=== PATIENT | male | born 1965 | race Caucasian/White ===

== ENCOUNTER 2016-11-03 01:33 | Emergency (ER) | payer SELFPAY ==
--- NOTE | 2016-11-03 02:23 | RADIOLOGY REPORT (SQ) ---
EXAM DESCRIPTION: FOOT RIGHT COMPLETE COMPLETED DATE/TIME: 11/03/2016 1:53 am REASON FOR STUDY: foot pain and swelling COMPARISON: None. NUMBER OF VIEWS: Three views. TECHNIQUE: AP, lateral and oblique radiographic images acquired of the right foot. LIMITATIONS: None. FINDINGS: MINERALIZATION: Normal. BONES: No acute fracture or dislocation. Mild degenerative changes at the 1st metatarsal-phalangeal joint. SOFT TISSUES: Mild soft tissue swelling overlying the 1st metatarsophalangeal joint. No radiopaque f oreign body. IMPRESSION: No radiographic evidence of acute fracture. Mild degenerative changes with overlying so ft tissue swelling at the 1st MTP joint. TECHNICAL DOCUMENTATION: JOB ID: [id number] [employer]- All Rights Reserved
[2016-11-03] MEDS ORDERED: COLCHICINE 0.6 MG TABLET PO ONE (04:41)
[2016-11-03] MEDS ORDERED: PREDNISONE 20 MG TABLET PO ONE (04:41)
[2016-11-03] MEDS ORDERED: HYDROCODONE/ACETAMINOPHEN 5-325 MG 6 TAB/DSPK PO PRN (04:41)
--- NOTE | 2016-11-03 04:42 | ER Document Report ---
ED Extremity Problem, Lower - General Mode of Arrival: Ambulatory Information source: Patient <SANDYTYLER - Last Filed: 11/03/16 05:56> <SUSANA CASTANO - Last Filed: 11/03/16 06:38> - General Chief Complaint: Foot Pain Stated Complaint: PAIN IN FOOT Time Seen by Provider: 11/03/16 04:10 Notes: Patient is a 51-year-old male that presents to the emergency department today with complaints of right foot pain and swelling. Patient states that he noticed this pain when he woke up this morning. Patient states the pain is mainly located in his right great toe which has increased in severity throughout the day. Patient denies any fevers. Patient denies a history of gout. (TYLER DELGADO) - Related Data Allergies/Adverse Reactions: shellfish derived Allergy (Verified 11/03/16 01:38) Past Medical History - General Information source: Patient - Social History Smoking Status: Unknown if Ever Smoked Chew tobacco use (# tins/day): No Frequency of alcohol use: Social Drug Abuse: None Lives with: Family Family History: Reviewed & Not Pertinent - Medical History Medical History: Negative Surgical Hx: Negative <TYLER DELGADO - Last Filed: 11/03/16 05:56> - Social History Smoking Status: Former Smoker <SUSANA CASTANO - Last Filed: 11/03/16 06:38> Review of Systems - Review of Systems Constitutional: No symptoms reported EENT: No symptoms reported Cardiovascular: No symptoms reported Respiratory: No symptoms reported Gastrointestinal: No symptoms reported Genitourinary: No symptoms reported Male Genitourinary: No symptoms reported Musculoskeletal: See HPI - right foot pain Skin: No symptoms reported Hematologic/Lymphatic: No symptoms reported Neurological/Psychological: No symptoms reported -: Yes All other systems reviewed and negative <TYLER DELGADO - Last Filed: 11/03/16 05:56> Physical Exam <TYLER DELGADO - Last Filed: 11/03/16 05:56> <SUSANA CASTANO - Last Filed: 11/03/16 06:38> - Vital signs Vitals: Temp Pulse Resp BP Pulse Ox 98.3 F 81 13 179/102 H 98 11/03/16 01:37 11/03/16 01:37 11/03/16 01:37 11/03/16 01:37 11/03/16 01:37 - Notes Notes: PHYSICAL EXAM GENERAL: Alert, interacts well. No acute distress. HEAD: Normocephalic, atraumatic. EYES: Pupils equal, round, and reactive to light. Extraocular movements intact. ENT: Oral mucosa moist, tongue midline. NECK: Full range of motion. Supple. Trachea midline. LUNGS: No respiratory distress. ABDOMEN: Non-distended. EXTREMITIES: Moves all 4 extremities spontaneously. No edema, radial and dorsalis pedis pulses 2/4 bilaterally. No cyanosis. Erythema, warmth, and tenderness with palpation over right 1st MTP. No lymphangitic streaking. NEUROLOGICAL: Alert and oriented x3. Normal speech. PSYCH: Normal affect, normal mood. SKIN: Warm, dry, normal turgor. No rashes or lesions noted. (TYLER DELGADO) Course <TYLER DELGADO - Last Filed: 11/03/16 05:56> <SUSANA CASTANO - Last Filed: 11/03/16 06:38> - Re-evaluation Re-evalutation: 11/03/16 04:55 Consistent with gout, will be started on steroids, colchicine and given a Galt dispense pack. Discharged home. Warned of signs of infection that should prompt return. Does not appear consistent with cellulitis at this time. (SUSANA CASTANO) - Vital Signs Vital signs: Temp Pulse Resp BP Pulse Ox 98.1 F 69 18 168/98 H 97 11/03/16 05:10 11/03/16 05:10 11/03/16 05:10 11/03/16 05:10 11/03/16 05:10 Discharge <TYLER DELGADO - Last Filed: 11/03/16 05:56> <SUSANA CASTANO - Last Filed: 11/03/16 06:38> - Discharge Clinical Impression: Acute gout of right foot Qualifiers: Gout etiology: unspecified cause Qualified Code(s): M10.9 - Gout, unspecified Hypertension Qualifiers: Hypertension type: essential hypertension Qualified Code(s): I10 - Essential ( primary) hypertension Condition: Stable Disposition: HOME, SELF-CARE Additional Instructions: Gout Diet Changing your diet can decrease the uric acid in your blood. High levels of uric acid cause gouty arthritis and uric acid kidney stones. If you have gout , you should avoid meats that are high in purine. Meat products to avoid include liver, kidneys, and brains. In general, poultry is better than red meats. Seafoods to avoid include anchovies, sardines, wallace, mackerel, and scallops. In addition to limiting purine-rich foods, people with gout should limit protein intake to 10-15% of total calories. Carbohydrate intake should be around 50% of total daily calories. Limit fat intake to 30% of total daily calories. Cholesterol intake should be less than 300 mg/day. Maintain or achieve a healthy body weight. Weight loss should be gradual. Rapid weight loss can actually increase uric acid levels temporarily. Alcohol, especially beer, should be avoided. Get plenty of fluids. This dilutes urinary uric acid, and helps prevent uric acid kidney stones. Drink eight to twelve cups of water daily. Gout You have been diagnosed as having gout. Gout is a problem caused by an excess of uric acid, a natural chemical found in the body. The cause of this disease is unknown. Gout arthritis occurs when crystals of uric acid form in the joints. The big toe is the most common joint involved, but any joint can become affected. Persons with gout may also form uric acid kidney stones, resulting in flank pain and blood in the urine. Nodules of uric acid may form under the skin. The first step of treatment is to decrease the inflammation in the joint with antiinflammatory medication. Medication to lower the uric acid level in the blood may then be prescribed. This medication should be taken regularly, as any sudden change in dosage may provoke an attack of gout. Some foods, such as red meat, can provoke an attack in some gout sufferers. Call the doctor if new symptoms arise, or if you do not improve. Prescriptions: Colchicine [Colchicine 0.6 mg Tablet] 0.6 mg PO Q6HP PRN #4 tablet PRN Reason: Prednisone 40 mg PO DAILY #8 tablet Forms: Elevated Blood Pressure Scribe Attestation: 11/03/16 06:38 I personally performed the services described in the documentation, reviewed and edited the documentation which was dictated to the scribe in my presence, and it accurately records my words and actions. (SUSANA CASTANO) Scribe Documentation - Scribe Written by Ashly:: Ashly Yousif, 11/03/2016 0604 acting as scribe for :: Betina <TYLER DELGADO - Last Filed: 11/03/16 05:56>
[2016-11-03 05:36] VITALS: BP 168/98
== END 2016-11-03 05:10 | disposition home or self-care (01) ==
LOC: ER 01:33
DX: M10.9 Gout, unspecified (principal); M79.674 Pain in right toe(s); I10 Essential (primary) hypertension; Z91.013 Allergy to seafood
CPT/HCPCS: 99283; 73630; J7512

== ENCOUNTER 2017-01-08 18:11 | Emergency (ER) | payer BC ==
--- NOTE | 2017-01-08 18:50 | ER Document Report ---
ED Medical Screen (RME) - General Chief Complaint: Abdominal Pain Stated Complaint: ABDOMINAL PAIN Time Seen by Provider: 01/08/17 18:48 Notes: Patient presents with periumbilical pain. He says he has had a small hernia there for "a long time". However today he noticed became much more painful and that it was "sloshing around". He has had no vomiting. No change of stools or urine. No problems with fevers. Exam in triage is limited due to patient sitting in a wheelchair however the hernia was able to be partially reduced with manual pressure. - Related Data Allergies/Adverse Reactions: shellfish derived Allergy (Verified 01/08/17 18:45) Home Medications: Current Home Medications No Home Medications 01/08/17 [History] Past Medical History - Social History Chew tobacco use (# tins/day): No Frequency of alcohol use: Heavy Drug Abuse: None - Past Medical History Cardiac Medical History: Reports: Hx Hypertension Renal/ Medical History: Denies: Hx Peritoneal Dialysis Surgical Hx: Negative - Immunizations Hx Diphtheria, Pertussis, Tetanus Vaccination: Yes History of Influenza Vaccine for 12/2016 - 05/2017 Season: No Physical Exam - Vital signs Vitals: Temp Pulse Resp BP Pulse Ox 98.4 F 88 18 173/106 H 97 01/08/17 18:15 01/08/17 18:15 01/08/17 18:15 01/08/17 18:15 01/08/17 18:15 Course - Vital Signs Vital signs: Temp Pulse Resp BP Pulse Ox 98.4 F 88 18 173/106 H 97 01/08/17 18:15 01/08/17 18:15 01/08/17 18:15 01/08/17 18:15 01/08/17 18:15
[2017-01-08 19:14] LABS: ABSOLUTE BASOPHILS # (AUTO) 0.1 10^3/uL (0.0-0.2); ABSOLUTE EOSINOPHILS # (AUTO) 0.5 10^3/uL (0.0-0.6); ABSOLUTE LYMPHOCYTES (AUTO) 2.9 10^3/uL (0.5-4.7); ABSOLUTE MONOCYTES (AUTO) 0.9 10^3/uL (0.1-1.4); ABSOLUTE NEUT (AUTO) 5.1 10^3/uL (1.7-8.2); BASOPHILS % (AUTO) 0.8 % (0-2); EOSINOPHILS % (AUTO) 4.8 % (0-6); HEMOGLOBIN 17.3 g/dL (13.5-17.0); HGB HCT DIFFERENCE 1.9; LYMPHOCYTES % (AUTO) 31.1 % (13-45); MEAN CORPUSCULAR HEMOGLOBIN 33.4 pg (27.0-33.4); MEAN CORPUSCULAR HGB CONC 34.5 g/dL (32.0-36.0); MEAN CORPUSCULAR VOLUME 97 fl (80-97); MONOCYTES % (AUTO) 9.1 % (3-13); RED BLOOD COUNT 5.17 10^6/uL (4.35-5.55); SEGMENTED NEUTROPHILS % (AUTO) 54.2 % (42-78); WHITE BLOOD COUNT 9.5 10^3/uL (4.0-10.5)
[2017-01-08 19:20] LABS: APPEARANCE,URINE CLEAR; BILIRUBIN,URINE NEGATIVE (NEGATIVE); GLUCOSE, URINE NEGATIVE (NEGATIVE); KETONES,URINE NEGATIVE (NEGATIVE); LEUKOCYTE ESTERASE,URINE NEGATIVE (NEGATIVE); NITRITE,URINE NEGATIVE (NEGATIVE); PROTEIN,URINE NEGATIVE (NEGATIVE); URINE SPECIFIC GRAVITY 1.004; UROBILINOGEN,URINE NEGATIVE mg/dL (<2.0)
[2017-01-08 19:31] LABS: ALANINE AMINOTRANSFERASE 34 U/L (21-72); ALKALINE PHOSPHATASE 94 U/L (38-126); ANION GAP 16 (5-19); ASPARTATE AMINO TRANSFERASE 40 U/L (17-59); BILIRUBIN,DIRECT 0.4 mg/dL (0.0-0.4); BILIRUBIN,TOTAL 0.8 mg/dL (0.2-1.3); BLOOD UREA NITROGEN 21 mg/dL (7-20); CALCIUM 9.8 mg/dL (8.4-10.2); CARBON DIOXIDE 25 mmol/L (22-30); CHLORIDE 101 mmol/L (98-107); CREATININE RESULT 0.91 mg/dL (0.52-1.25); GLUCOSE 84 mg/dL (75-110); POTASSIUM 4.1 mmol/L (3.6-5.0); TOTAL PROTEIN 8.2 g/dL (6.3-8.2)
--- NOTE | 2017-01-08 20:48 | ER Document Report ---
ED General - General Chief Complaint: Abdominal Pain Stated Complaint: ABDOMINAL PAIN Time Seen by Provider: 01/08/17 18:48 Mode of Arrival: Ambulatory Information source: Patient Notes: 51-year-old male history of umbilical hernia notes that has popped out. Patient notes he has had a hernia in the past but is never bothered him. Patient has had a history of left inguinal hernia repair Patient denies any fevers chills nausea vomiting, denies any constipation, notes normal bowel movement today - HPI Onset: Just prior to arrival Onset/Duration: Sudden Quality of pain: Achy Severity: Mild Pain Level: 1 Associated symptoms: Other Exacerbated by: Denies Relieved by: Denies Similar symptoms previously: Yes Recently seen / treated by doctor: No - Related Data Allergies/Adverse Reactions: shellfish derived Allergy (Verified 01/08/17 18:45) Home Medications: Current Home Medications No Home Medications 01/08/17 [History] Past Medical History - Social History Smoking Status: Current Every Day Smoker Cigarette use (# per day): Yes Chew tobacco use (# tins/day): No Smoking Education Provided: No Frequency of alcohol use: Heavy Drug Abuse: None Family History: Reviewed & Not Pertinent - Past Medical History Cardiac Medical History: Reports: Hx Hypertension Renal/ Medical History: Denies: Hx Peritoneal Dialysis Surgical Hx: Negative - Immunizations Hx Diphtheria, Pertussis, Tetanus Vaccination: Yes Review of Systems - Review of Systems Notes: REVIEW OF SYSTEMS: CONSTITUTIONAL : Denies fever, chills, or sweats. Denies recent illness. EENT: Denies eye, ear, throat, or mouth pain or symptoms. Denies nasal or sinus congestion or discharge. Denies throat, tongue, or mouth swelling or difficulty swallowing. CARDIOVASCULAR: Denies chest pain. Denies palpitations or racing or irregular heart beat. Denies ankle edema. RESPIRATORY: Denies cough, cold, or chest congestion. Denies shortness of breath, difficulty breathing, or wheezing. GASTROINTESTINAL: Admits to umbilical hernia GENITOURINARY: Denies difficulty urinating, painful urination, burning, frequency, blood in urine, or discharge. MUSCULOSKELETAL: Denies back or neck pain or stiffness. Denies joint pain or swelling. SKIN: Denies rash, lesions or sores. HEMATOLOGIC : Denies easy bruising or bleeding. LYMPHATIC: Denies swollen, enlarged glands. NEUROLOGICAL: Denies confusion or altered mental status. Denies passing out or loss of consciousness. Denies dizziness or lightheadedness. Denies headache. Denies weakness or paralysis or loss of use of either side. Denies problems with gait or speech. Denies sensory loss, numbness, or tingling. Denies seizures. PSYCHIATRIC: Denies anxiety or stress. Denies depression, suicidal ideation, or homicidal ideation. ALL OTHER SYSTEMS REVIEWED AND NEGATIVE. Dictation was performed using [employer] voice recognition software PHYSICAL EXAMINATION: GENERAL: Well-appearing, well-nourished and in no acute distress. HEAD: Atraumatic, normocephalic. EYES: Pupils equal round and reactive to light, extraocular movements intact, sclera anicteric, conjunctiva are normal. ENT: Nares patent, oropharynx clear without exudates. Moist mucous membranes. NECK: Normal range of motion, supple without lymphadenopathy LUNGS: Breath sounds clear to auscultation bilaterally and equal. No wheezes rales or rhonchi. HEART: Regular rate and rhythm without murmurs ABDOMEN: Soft, small umbilical hernia noted Musculoskeletal: Normal range of motion, no pitting or edema. No cyanosis. NEUROLOGICAL: Cranial nerves grossly intact. Normal speech, normal gait. Normal sensory, motor exams PSYCH: Normal mood, normal affect. SKIN: Warm, Dry, normal turgor, no rashes or lesions noted. Physical Exam - Vital signs Vitals: Temp Pulse Resp BP Pulse Ox 98.4 F 88 18 173/106 H 97 01/08/17 18:15 01/08/17 18:15 01/08/17 18:15 01/08/17 18:15 01/08/17 18:15 Course - Re-evaluation Re-evalutation: 01/09/17 00:01 Hernia was immediately reduced in the emergency department with no difficulty at explained how to reduce hernias. Patient was extremely happy with this After performing a Medical Screening Examination, I estimate there is LOW risk for ACUTE APPENDICITIS, BOWEL OBSTRUCTION, ACUTE CHOLECYSTITIS, PERFORATED DIVERTICULITIS, INCARCERATED HERNIA, PANCREATITIS, TESTICULAR TORSION or PERFORATED ULCER, thus I consider the discharge disposition reasonable. Also, there is no evidence or peritonitis, sepsis, or toxicity. I have reevaluated this patient multiple times and no significant life threatening changes are noted. The patient and I have discussed the diagnosis and risks, and we agree with discharging home with close follow-up with the understanding that symptoms and presentations can change. We also discussed returning to the Emergency Department immediately if new or worsening symptoms occur. We have discussed the symptoms which are most concerning (e.g., bloody stool, fever, changing or worsening pain, intractable vomiting - standard verbal up date) that necessitate immediate return. - Vital Signs Vital signs: Temp Pulse Resp BP Pulse Ox 98.1 F 88 18 142/70 H 97 01/08/17 21:18 01/08/17 18:15 01/08/17 18:15 01/08/17 21:18 01/08/17 18:15 - Laboratory Result Diagrams: 01/08/17 18:50 01/08/17 18:50 Laboratory results interpreted by me: 01/08/17 01/08/17 01/08/17 18:50 18:50 18:50 Hgb 17.3 H BUN 21 H Urine Blood SMALL H - Diagnostic Test Radiology reviewed: Image reviewed, Reports reviewed - No acute abnormality Procedures - Additional Procedures umblical hernia reduction Time performed: 20:18 - umbilcal hernia reduced wit hno complications Discharge - Discharge Clinical Impression: Abdominal pain Qualifiers: Abdominal location: periumbilical Qualified Code(s): R10.33 - Periumbilical pain Umbilical hernia Qualifiers: Obstruction and gangrene presence: without obstruction or gangrene Qualified Code(s): K42.9 - Umbilical hernia without obstruction or gangrene Condition: Stable Disposition: HOME, SELF-CARE Instructions: Umbilical Hernia ([facility]) Referrals: TRACI CHAIDEZ MD [ACTIVE STAFF] - Follow up tomorrow
--- NOTE | 2017-01-08 21:17 | RADIOLOGY REPORT (SQ) ---
EXAM DESCRIPTION: ACUTE ABDOMEN SERIES COMPLETED DATE/TIME: 01/08/2017 8:27 pm REASON FOR STUDY: post hernia reduction COMPARISON: None. NUMBER OF VIEWS: Three views. TECHNIQUE: Frontal chest, supine abdomen and upright/decubitus abdomen radiographic images acquired. LIMITATIONS: None. FINDINGS: CHEST: Lungs clear of infiltrates. FREE AIR: None. No abnormal gas collections. BOWEL GAS PATTERN: Nonobstructive pattern. No dilated loops or air fluid levels. CALCIFICATIONS: No suspicious calcifications. HARDWARE: None in the abdomen. SOFT TISSUES: No gross mass or suggestion of organomegaly. BONES: No acute fracture. No worrisome bone lesions. OTHER: No other significant finding. IMPRESSION: NO RADIOGRAPHIC EVIDENCE FOR ACUTE ABDOMINAL DISEASE. TECHNICAL DOCUMENTATION: JOB ID: [id number] [employer]- All Rights Reserved
[2017-01-08 21:19] VITALS: BP 142/70
== END 2017-01-08 21:19 | disposition home or self-care (01) ==
LOC: ER 18:11
DX: K42.9 Umbilical hernia without obstruction or gangrene (principal); R10.33 Periumbilical pain; F17.210 Nicotine dependence, cigarettes, uncomplicated
CPT/HCPCS: 36415; 74022; 80053; 81001; 85025; 99284

== ENCOUNTER 2018-03-20 21:37 | Emergency (ER) | payer BC ==
[2018-03-20] MEDS ORDERED: ONDANSETRON HCL INJ/PF 4 MG/2 ML SDV IV ONE (22:26)
[2018-03-20] MEDS ORDERED: KETOROLAC TROMETHAMINE INJ/PF 30 MG/1 ML SDV IV ONE (22:26)
[2018-03-20 22:30] LABS: ABSOLUTE BASOPHILS # (AUTO) 0.1 10^3/uL (0.0-0.2); ABSOLUTE EOSINOPHILS # (AUTO) 0.4 10^3/uL (0.0-0.6); ABSOLUTE MONOCYTES (AUTO) 0.9 10^3/uL (0.1-1.4); ABSOLUTE NEUT (AUTO) 10.2 10^3/uL (1.7-8.2); BASOPHILS % (AUTO) 0.6 % (0-2); EOSINOPHILS % (AUTO) 2.6 % (0-6); LYMPHOCYTES % (AUTO) 20.8 % (13-45); MEAN CORPUSCULAR HEMOGLOBIN 34.1 pg (27.0-33.4); MEAN CORPUSCULAR HGB CONC 34.9 g/dL (32.0-36.0); MEAN CORPUSCULAR VOLUME 98 fl (80-97); MONOCYTES % (AUTO) 6.3 % (3-13); PLATELET COUNT 248 10^3/uL (150-450); RED CELL DISTRIBUTION WIDTH 12.4 % (11.5-14.0); SEGMENTED NEUTROPHILS % (AUTO) 69.7 % (42-78); TOTAL CELLS COUNTED % (AUTO) 100 %; WHITE BLOOD COUNT 14.6 10^3/uL (4.0-10.5)
[2018-03-20] MEDS: MORPHINE SULFATE 10 MG/ML INJ IV PRN (22:31)
[2018-03-20 22:42] LABS: ALANINE AMINOTRANSFERASE 33 U/L (21-72); ALBUMIN 3.7 g/dL (3.5-5.0); ALKALINE PHOSPHATASE 74 U/L (38-126); ANION GAP 9 (5-19); ASPARTATE AMINO TRANSFERASE 34 U/L (17-59); BILIRUBIN,DIRECT 0.2 mg/dL (0.0-0.4); BILIRUBIN,TOTAL 0.2 mg/dL (0.2-1.3); BLOOD UREA NITROGEN 22 mg/dL (7-20); CALCIUM 9.3 mg/dL (8.4-10.2); CARBON DIOXIDE 24 mmol/L (22-30); CHLORIDE 103 mmol/L (98-107); GLUCOSE 156 mg/dL (75-110); LIPASE 78.7 U/L (23-300); POTASSIUM 3.9 mmol/L (3.6-5.0); SODIUM 136.3 mmol/L (137-145); TOTAL PROTEIN 6.2 g/dL (6.3-8.2)
--- NOTE | 2018-03-20 22:51 | RADIOLOGY REPORT (SQ) ---
EXAM DESCRIPTION: AP view of the chest CLINICAL HISTORY:53 years Male, cp Comparison: None FINDINGS: No focal lung consolidation. Lung volumes are decreased. No pleural effusion. No pneumothorax. Cardiac and mediastinal silhouette is unremarkable. No acute osseous abnormality. Soft tissues are unremarkable. IMPRESSION: No acute findings. No focal lung consolidation.
--- NOTE | 2018-03-20 22:51 | ER Document Report ---
ED General - General Chief Complaint: Abdominal Pain Stated Complaint: ABDOMINAL PAIN Time Seen by Provider: 03/20/18 22:10 Notes: Patient is a 53-year-old male with past medical history of hypertension who presents with generalized lower abdominal pain, shortness of breath, and pleuritic pain. He states that these symptoms started earlier this morning and have been progressively worsening since that time. 4 days ago he did have an umbilical hernia repair completed as an outpatient at [facility]. He states that he been doing well postoperatively until this morning. He describes the pain to his lower abdomen and right lower rib spaces being a severe, aching, constant pain worsened by movement or breathing. Nothing improves his symptoms. No history of similar symptoms in the past. He has not contacted his surgeon regarding today's concerns. No fever or constitutional symptoms. Per EMS the patient's initial heart rate was markedly elevated but has improved since their transport to the emergency department. - Related Data Allergies/Adverse Reactions: shellfish derived Allergy (Verified 01/08/17 18:45) Past Medical History - General Information source: Patient - Social History Smoking Status: Current Every Day Smoker Chew tobacco use (# tins/day): No Frequency of alcohol use: Occasional Drug Abuse: None Lives with: Spouse/Significant other Family History: Reviewed & Not Pertinent Patient has suicidal ideation: No Patient has homicidal ideation: No - Past Medical History Cardiac Medical History: Reports: Hx Hypertension Renal/ Medical History: Denies: Hx Peritoneal Dialysis - Immunizations Hx Diphtheria, Pertussis, Tetanus Vaccination: Yes Review of Systems - Review of Systems Notes: Constitutional: Negative for fever. HENT: Negative for sore throat. Eyes: Negative for visual changes. Cardiovascular: Negative for chest pain. Respiratory: Negative for shortness of breath. Gastrointestinal: Positive for abdominal pain and nausea Genitourinary: Negative for dysuria. Musculoskeletal: Negative for back pain. Skin: Negative for rash. Neurological: Negative for headaches, weakness or numbness. 10 point ROS negative except as marked above and in HPI. Physical Exam - Vital signs Vitals: Resp Pulse Ox 20 97 03/20/18 21:50 03/20/18 21:50 Interpretation: Tachycardic Notes: PHYSICAL EXAMINATION: GENERAL: Uncomfortable and ill in appearance. Appears to be in mild distress secondary to pain. HEAD: Atraumatic, normocephalic. EYES: Pupils equal round and reactive to light, extraocular movements intact, sclera anicteric, conjunctiva are normal. ENT: nares patent, oropharynx clear without exudates. Moderately dry mucous membranes. NECK: Normal range of motion, supple without lymphadenopathy LUNGS: Breath sounds clear to auscultation bilaterally and equal. No wheezes rales or rhonchi. HEART: Regular tachycardia without murmurs ABDOMEN: Soft, generalized right lower and suprapubic abdominal tenderness to palpation. Normoactive bowel sounds. No guarding, no rebound. No masses appreciated. EXTREMITIES: Normal range of motion, no pitting or edema. No cyanosis. NEUROLOGICAL: No focal neurological deficits. Moves all extremities spontaneously and on command. PSYCH: Normal mood, normal affect. SKIN: Warm, Dry, normal turgor, well-healing umbilical surgical incisional wound. Course - Re-evaluation Re-evalutation: 03/20/18 22:48 Patient presents with 24 hours of severe pain in the right lower rib region with deep inspiration. The patient has notable tachycardia, his heart rate has not decreased below 105 during his time here in the emergency department and was apparently elevated well into the 100s for EMS. The patient does appear to be in exquisite pain anytime he attempts to take a deep breath. The patient is at very high risk for an acute pulmonary embolus given his clinical history and recent surgery. A D-dimer test would not be useful in this context given the proximity of his recent surgery and I will therefore proceed directly to a CTA of the chest to evaluate. The patient abdominal exam is overall benign although he does have some diffuse lower abdominal tenderness on palpation. There is a well-healing incisional scar over the umbilicus. An alternative consideration for the patient's pain would be a postoperative complication such as an intra- abdominal abscess or bleeding. Will proceed with a CT abdomen pelvis to definitively exclude these pathologies given the patient's degree of pain and tachycardia as well as ill appearance. Will obtain basic laboratories. Patient has had improved pain control after receiving Toradol and morphine. He will remain on monitor. 03/21/18 00:17 CT abdomen and pelvis does show a 20 cm by 4 x 10 cm hematoma extending from the umbilicus into the pelvic region on CT abdomen pelvis, CT of the chest clear for evidence of a pulmonary embolus. Hemoglobin is within normal limits at 14. The patient has had improvement of his tachycardia currently heart rate is 96. Blood pressure remains within acceptable limits at 132/92. I did discuss with Dr. Alvarez the surgeon on-call. He states that the patient does not require hospitalization, has recommended observation in the emergency department and a recheck of CBC in 6 hours followed by discharge. I did ask if he would like to evaluate the patient and he declined. Given that the patient did have surgery at [facility] I subsequent contacted that facility to discuss this case with the surgeon who performed the procedure as I believe the patient does require 24 hours of monitoring and serial rechecks of CBC. 03/21/18 00:41 I did discuss this case with the surgeon on-call at [facility] who has accepted the patient for admission. He does agree that the patient requires observation. The patient remains hemodynamic within normal limits. I will schedule a recheck CBC 6 hours from initial. He will remain n.p.o. currently. 03/21/18 02:48 Patient's repeat CBC has dropped by one-point. Remains within relatively acceptable levels. A recheck is scheduled 6 hours after the last check. - Vital Signs Vital signs: Temp Pulse Resp BP Pulse Ox 98.9 F 72 22 H 124/82 92 03/21/18 01:19 03/21/18 01:19 03/21/18 02:01 03/21/18 02:00 03/21/18 02:01 - Laboratory Result Diagrams: 03/21/18 01:15 03/20/18 21:58 Laboratory results interpreted by me: 03/20/18 03/20/18 03/21/18 21:58 21:58 01:15 WBC 14.6 H 13.5 H RBC 4.10 L 3.88 L Hgb 13.0 L MCV 98 H 98 H MCH 34.1 H 33.6 H Absolute Neutrophils 10.2 H Sodium 136.3 L BUN 22 H Glucose 156 H Total Protein 6.2 L - Diagnostic Test Radiology reviewed: Reports reviewed Critical Care Note - Critical Care Note Total time excluding time spent on procedures (mins): 36 Comments: Critical care time spent obtaining history from patient or surrogate, discussions with consultants, development of treatment plan with patient or surrogate, evaluation of patient's response to treatment, examination of p atient, ordering and performing treatments and interventions, ordering and review of laboratory studies, re-evaluation of patient's condition, ordering and review of radiographic studies and review of old charts Discharge - Discharge Clinical Impression: Shortness of breath, Tachycardia, Right sided abdominal pain Postoperative complication Qualifiers: Surgical complication system/body Area: circulatory system Surgical complication type: hematoma Procedure type: non-circulatory Qualified Code(s): I97.621 - Postprocedural hematoma of a circulatory system organ or structure following other procedure Condition: Fair
--- NOTE | 2018-03-20 23:49 | RADIOLOGY REPORT (SQ) ---
EXAM DESCRIPTION: CT ABDOMEN PELVIS WITH IV CONTRAST, CT CHEST ANGIOGRAPHY WITHOUT THEN WITH IV CONTRAST COMPLETED DATE/TME: 03/20/2018 22:47 (accession [id number]), 03/20/2018 22:43 (accession [id number]) CLINICAL HISTORY: 53 years Male, ab pain post op Comparison: CR, concurrent. Technique: IV contrast. Coronal and sagittal reformat. 3d reconstruction. This exam was performed according to our departmental dose-optimization program, which includes automated exposure control, adjustment of the mA and/or kV according to patient size and/or use of iterative reconstruction technique.[facility]: Dose Right [facility]: CareDose [facility]: Dose Right [facility]: Teradose 4D [facility]: [employer] LIMITATIONS: None Findings: 20 x 4 x 10 cm, 50-61 HU, collection of the anterior abdominal pelvic extends from the umbilicus to the pelvis posterior to the urinary bladder probably due to a hematoma. Arterial source not discerned. No focal IV contrast extravasation. Moderate ascites. Moderate fat streaking deep to the umbilicus. Small umbilical fluid and gas bubbles. Mild distended small bowel with fluid measures 2.9 cm in diameter at the jejunum consistent with a mild diffuse small bowel ileus pattern. No pulmonary embolus. No right ventricular strain. Clear lungs. Inferior neck, axillae, mediastinum, lungs, airway, heart, liver, gallbladder, pancreas, spleen, adrenals, renal system, gastrointestinal tract, pelvic organs, lymphatics, vasculature, and musculoskeleton appear otherwise unremarkable. Impression: 1. Intra-abdominal, subacute /acute hematoma measures 20 cm. Immediate Surgical referral advised. 2. No pulmonary embolus. No acute cardiopulmonary findings. Critical results reporting: Findings discussed with Dr. JAMILA AUGUSTIN, immediately following interpretation of the examination on 03/20/2018 10:47 PM GRAPHIC DESIGN ASSISTANT.
--- NOTE | 2018-03-20 23:49 | RADIOLOGY REPORT (SQ) ---
EXAM DESCRIPTION: CT ABDOMEN PELVIS WITH IV CONTRAST, CT CHEST ANGIOGRAPHY WITHOUT THEN WITH IV CONTRAST COMPLETED DATE/TME: 03/20/2018 22:47 (accession [id number]), 03/20/2018 22:43 (accession [id number]) CLINICAL HISTORY: 53 years Male, ab pain post op Comparison: CR, concurrent. Technique: IV contrast. Coronal and sagittal reformat. 3d reconstruction. This exam was performed according to our departmental dose-optimization program, which includes automated exposure control, adjustment of the mA and/or kV according to patient size and/or use of iterative reconstruction technique.[facility]: Dose Right [facility]: CareDose [facility]: Dose Right [facility]: Teradose 4D [facility]: [employer] LIMITATIONS: None Findings: 20 x 4 x 10 cm, 50-61 HU, collection of the anterior abdominal pelvic extends from the umbilicus to the pelvis posterior to the urinary bladder probably due to a hematoma. Arterial source not discerned. No focal IV contrast extravasation. Moderate ascites. Moderate fat streaking deep to the umbilicus. Small umbilical fluid and gas bubbles. Mild distended small bowel with fluid measures 2.9 cm in diameter at the jejunum consistent with a mild diffuse small bowel ileus pattern. No pulmonary embolus. No right ventricular strain. Clear lungs. Inferior neck, axillae, mediastinum, lungs, airway, heart, liver, gallbladder, pancreas, spleen, adrenals, renal system, gastrointestinal tract, pelvic organs, lymphatics, vasculature, and musculoskeleton appear otherwise unremarkable. Impression: 1. Intra-abdominal, subacute /acute hematoma measures 20 cm. Immediate Surgical referral advised. 2. No pulmonary embolus. No acute cardiopulmonary findings. Critical results reporting: Findings discussed with Dr. JAMILA AUGUSTIN, immediately following interpretation of the examination on 03/20/2018 10:47 PM STATISTICAL GENETICIST.
[2018-03-21] MEDS ORDERED: NORMAL SALINE 1000 ML 1,000 ML IV ONE (00:10)
[2018-03-21 01:26] LABS: HEMATOCRIT 38.1 % (37.9-51.0); MEAN CORPUSCULAR HEMOGLOBIN 33.6 pg (27.0-33.4); MEAN CORPUSCULAR HGB CONC 34.2 g/dL (32.0-36.0); MEAN CORPUSCULAR VOLUME 98 fl (80-97); PLATELET COUNT 232 10^3/uL (150-450); RED BLOOD COUNT 3.88 10^6/uL (4.35-5.55); RED CELL DISTRIBUTION WIDTH 12.3 % (11.5-14.0); WHITE BLOOD COUNT 13.5 10^3/uL (4.0-10.5)
[2018-03-21] MEDS ORDERED: HYDROMORPHONE HCL INJ/PF 2 MG/ML AMPULE ONE (01:46)
[2018-03-21] MEDS ORDERED: MORPHINE SULFATE 10 MG/ML INJ ONE (01:47)
[2018-03-21] MEDS: MORPHINE SULFATE 10 MG/ML INJ IV PRN (01:49)
[2018-03-21 03:21] VITALS: BP 129/85
--- NOTE | 2018-03-21 06:37 | EKG REPORT ---
SEVERITY:- ABNORMAL ECG - SINUS TACHYCARDIA PROBABLE LEFT ATRIAL ABNORMALITY RIGHT AXIS DEVIATION CONSIDER ANTERIOR INFARCT : Confirmed by: Xavier Palacios MD 21-Mar-2018 06:37:27
== END 2018-03-21 03:24 | disposition home or self-care (01) ==
LOC: ER 21:37
DX: I97.621 Postprocedural hematoma of a circulatory system organ or structure following other procedure (principal); R10.30 Lower abdominal pain, unspecified; R00.0 Tachycardia, unspecified; R07.81 Pleurodynia; R06.02 Shortness of breath; F17.200 Nicotine dependence, unspecified, uncomplicated; I10 Essential (primary) hypertension
CPT/HCPCS: 93005; 99285; 96361; 96374; 96375; 36415; 83690; 85025; 85027; 80053; 84484; 71045; 71275; 74177; 93010; J1885; J2270 ×2; J2405; J7030